=== PATIENT | male | born 1975 | race Caucasian/White ===

== ENCOUNTER 2017-10-28 12:32 | Inpatient (IN) | payer SELFPAY ==
[~2017-10-28] VITALS: Ht 160 cm; Wt 84.0 kg
[2017-10-28 12:37] VITALS: BP 133/81; PULSE 69; RESP 20; TEMP 98.7; O2SAT 98
--- NOTE | 2017-10-28 12:43 | PD ---
HPI Chief Complaint: Musculoskeletal Complaint Time Seen by Provider: 12:43 Travel History International Travel<30 days: No Contact w/Intl Traveler<30days: No Traveled to known affect area: No History of Present Illness HPI 41-year-old male came to the emergency room with history of left ankle injury today [place] the [place] and [place] a fish. He was brought in by his family. Patient speaks very limited Romansh and mostly Danish. However the Romansh was sufficient enough to let pain know about this history. He is having trouble bearing weight on that leg. No open wounds. He denies injuring any other part of the leg or his head. Vital signs are stable. This happened just prior to coming to the emergency room. He still covered in mud and sand. [facility], [facility] Past Medical History Narrative Medical List of his past medical, surgical, social and family history is reviewed from the nursing note. ?: Not Allergies-Medications (Allergen,Severity, Reaction): Coded Allergies: No Known Allergies (Unverified , 10/28/17) Comments No known drug allergies. Narrative Medication Awaiting for the nurse to do the med reconciliation Review of Systems Except as stated in HPI: all other systems reviewed are Neg Musculoskeletal: Positive: Pain Physical Exam Narrative GENERAL: Awake, alert, moderate distress SKIN: Focused skin assessment warm/dry. Dirt and sand on the legs HEAD: Atraumatic. Normocephalic. EYES: Pupils equal and round. No scleral icterus. No injection or drainage. ENT: No nasal bleeding or discharge. Mucous membranes pink and moist. NECK: Trachea midline. No JVD. CARDIOVASCULAR: Regular rate and rhythm. No murmur appreciated. RESPIRATORY: No accessory muscle use. Clear to auscultation. Breath sounds equal bilaterally. GASTROINTESTINAL: Abdomen soft, non-tender, nondistended. Hepatic and splenic margins not palpable. MUSCULOSKELETAL: No obvious deformities. No clubbing. No cyanosis. No edema. Decreased range of motion at the left ankle joint due to the pain NEUROLOGICAL: Awake and alert. No obvious cranial nerve deficits. Motor grossly within normal limits. Normal speech. PSYCHIATRIC: Appropriate mood and affect; insight and judgment normal. Data Data Last Documented VS Vital Signs Date Time Temp Pulse Resp B/P (MAP) Pulse Ox O2 Delivery O2 Flow Rate FiO2 10/28/17 14:21 18 10/28/17 13:48 68 143/78 (99) 98 Room Air 10/28/17 12:37 98.7 Orders Orders Ankle, Limited (Ap&Lat) (10/28/17 ) Foot, Complete ([id number]) (10/28/17 ) Acetamin-Hydrocod 325-5 Mg ([employer] 5-325 (10/28/17 13:00) Ketorolac Inj (Toradol Inj) (10/28/17 13:00) Support Splint (10/28/17 14:32) Complete Blood Count With Diff (10/28/17 14:32) Basic Metabolic Panel (Bmp) (10/28/17 14:32) ^ Saline Lock (10/28/17 14:32) Morphine Inj (Morphine Inj) (10/28/17 14:45) Admit To Inpatient (10/28/17 ) Vital Signs (Adult) Q4H (10/28/17 14:46) Activity Oob With Assistance (10/28/17 14:46) Sodium Chlor 0.9% 1000 Ml Inj (Ns 1000 M (10/28/17 14:46) Sodium Chloride 0.9% Flush (Ns Flush) (10/28/17 15:00) Sodium Chloride 0.9% Flush (Ns Flush) (10/28/17 21:00) Acetaminophen (Tylenol) (10/28/17 15:00) Resp Oxygen Jovanni C Titrat 1-4 L (10/28/17 ) Naloxone Inj (Narcan Inj) (10/28/17 15:00) Magnesium Hydroxide Liq (Milk Of Magnesi (10/28/17 15:00) Sennosides (Senokot) (10/28/17 15:00) Bisacodyl Supp (Dulcolax Supp) (10/28/17 15:00) Lactulose Liq (Lactulose Liq) (10/28/17 15:00) Inpatient Certification (10/28/17 ) Consult Orthopedic (10/28/17 ) Acetamin-Hydrocod 325-10 Mg ([employer] 10-32 (10/28/17 15:00) Hgb & Hct (10/29/17 06:00) Diet Npo Except Meds (10/28/17 Dinner) Hydromorphone Pf Inj (Dilaudid Pf Inj) (10/28/17 15:00) MDM Medical Decision Making Medical Screen Exam Complete: Yes Emergency Medical Condition: Yes Medical Record Reviewed: Yes Differential Diagnosis Ankle fracture, ankle dislocation, foot fracture, sprain Narrative Course 1:58 PM awaiting for the x-ray to be done and resulted. Patient was medicated for pain. 2:34 PM x-ray suggestive of comminuted distal tib-fib fracture. I have ordered for a Betancourt splint. Patient would require surgery looking at the severity of the fracture. I put a call out for orthopedist. I put a call out for the hospitalist for admission and possible transfer to the main hospital. Procedures EKG Prior to Arrival: No Physician Communication Physician Communication Dr. Fontana Diagnosis Primary Impression: Fracture of distal end of tibia with fibula Qualified Codes: S82.302A - Unspecified fracture of lower end of left tibia, initial encounter for closed fracture; S82.832A - Other fracture of upper and lower end of left fibula, initial encounter for closed fracture Admitting Information Admitting Physician Requests: Admit Sanjana Paul MD Oct 28, 2017 12:43
[2017-10-28] MEDS ORDERED: ACETAMINOPHEN/HYDROcodone 325 MG/5 MG TAB PO ONE (13:00)
[2017-10-28] MEDS ORDERED: KETOROLAC TROMETHAMINE 60 MG/2 ML (IM) VIAL IM ONE (13:00)
[2017-10-28 13:48] VITALS: BP 143/78; PULSE 68; RESP 16; O2SAT 98
--- NOTE | 2017-10-28 14:21 | RADRPT ---
EXAM DATE: 10/28/2017 2:15 PM EDT AGE/SEX: 41 years / Male INDICATIONS: Left ankle pain post fall CLINICAL DATA: This is the patient's initial encounter. Patient reports that signs and symptoms have been present for 1 day and indicates a pain score of 10/10. MEDICAL/SURGICAL HISTORY: None. None. COMPARISON: No prior exams available for comparison. FINDINGS: Comminuted fracture through the distal fibular diaphysis. Comminuted fracture through the distal tibi al metadiaphysis with intra-articular extension and disruption of the ankle mortise. There appear to be avulsed bony fragments associated with the comminuted fractures CONCLUSION: 1. Comminuted distal tibial metadiaphyseal fracture with intra-articular extension and disruption of the ankle mortise. 2. Comminuted and slightly displaced fracture through the distal fibular diaphysis Electronically signed by: Alonso Regan MD 10/28/2017 2:20 PM EDT
--- NOTE | 2017-10-28 14:27 | RADRPT ---
EXAM DATE: 10/28/2017 2:14 PM EDT AGE/SEX: 41 years / Male INDICATIONS: Left foot pain post fall CLINICAL DATA: This is the patient's initial encounter. Patient reports that signs and symptoms have been present for 1 day and indicates a pain score of 10/10. MEDICAL/SURGICAL HISTORY: None. None. COMPARISON: No prior exams available for comparison. 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 There m ay also be an accessory ossification adjacent to the navicular. Otherwise, bony structures are intact with no acute fracture. There is bony fusion of the middle and distal phalanges of the fifth ray wit h possible old fracture deformity of the same ossicles CONCLUSION: 1. 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 2. Possible old fracture deformity of the distal phalanx of the fifth digit. No acute osseous injury of the foot, however. 3. Extensive fracture injury of the distal tibia and fibula. Please see the report on the plain film examination of the ankle for further details. Electronically signed by: Alonso Regan MD 10/28/2017 2:25 PM EDT
[2017-10-28] MEDS ORDERED: MORPHINE SULFATE 2 MG/ML SYRINGE IV PUSH ONE (14:45)
[2017-10-28] MEDS ORDERED: SODIUM CHLOR 0.9% 1000 ML INJ 1,000 ML IV SCH (14:46)
[2017-10-28] MEDS ORDERED: LACTULOSE SYRUP 20 GM/30 ML CUP PO PRN (15:00)
[2017-10-28] MEDS ORDERED: SENNOSIDES 8.6 MG TAB PO PRN (15:00)
[2017-10-28] MEDS ORDERED: NALOXONE HCL 0.4 MG/ML AMP IV PUSH PRN (15:00)
[2017-10-28] MEDS ORDERED: BISACODYL 10 MG SUPP RECTAL PRN (15:00)
[2017-10-28] MEDS ORDERED: ACETAMINOPHEN/HYDROcodone 325 MG/10 MG TAB PO PRN (15:00)
[2017-10-28] MEDS ORDERED: MAGNESIUM HYDROXIDE SUSP 30 ML CUP PO PRN (15:00)
[2017-10-28] MEDS ORDERED: SODIUM CHLORIDE 0.9% FLUSH 10 ML FLUSH IV FLUSH PRN (15:00)
[2017-10-28] MEDS ORDERED: ACETAMINOPHEN 325 MG TAB PO PRN (15:00)
[2017-10-28] MEDS ORDERED: HYDROmorphone HCL PF 2 MG/ML VIAL IV PUSH PRN (15:00)
[2017-10-28 15:07] VITALS: BP 138/78; PULSE 68; RESP 16; O2SAT 98
[2017-10-28 15:07] LABS: AUTOMATED NEUTROPHIL # 10.6 TH/MM3 (1.8-7.7); BASOPHIL % 0.2 % (0.0-2.0); EOSINOPHIL % 0.1 % (0.0-4.0); HEMATOCRIT 44.3 % (39.0-51.0); LYMPH % 11.3 % (9.0-44.0); LYMPHOCYTE # 1.4 TH/MM3 (1.0-4.8); MEAN CELL VOLUME 87.3 FL (80.0-100.0); MEAN CORPUSCULAR HEMOGLOBIN 29.6 PG (27.0-34.0); MEAN CORPUSCULAR HGB CONC 33.9 % (32.0-36.0); MEAN PLATELET VOLUME 8.8 FL (7.0-11.0); MONO % 4.5 % (0.0-8.0); MONOCYTE # 0.6 TH/MM3 (0-0.9); NEUT % 83.9 % (16.0-70.0); PLATELET COUNT 248 TH/MM3 (150-450); RED BLOOD COUNT 5.08 MIL/MM3 (4.50-5.90); RED CELL DISTRIBUTION WIDTH 13.8 % (11.6-17.2); WHITE BLOOD COUNT 12.6 TH/MM3 (4.0-11.0)
[2017-10-28 15:15] LABS: BICARBONATE 23.9 MEQ/L (21.0-32.0); CALCIUM 8.9 MG/DL (8.5-10.1)
[2017-10-28 17:38] VITALS: BP 129/65; PULSE 63; RESP 16; O2SAT 98
[2017-10-28] MEDS ORDERED: SODIUM CHLORIDE 0.9% FLUSH 10 ML FLUSH IV FLUSH SCH (21:00)
== END 2017-10-28 20:11 | disposition left against medical advice (07) | DRG 563 ==
LOC: PHED 12:32 → PHEDA 14:59
PROVIDERS: ADMIT Hospitalist; ATTEND Hospitalist
DX: S89.102A Unspecified physeal fracture of lower end of left tibia, initial encounter for closed fracture (principal); S82.452A Displaced comminuted fracture of shaft of left fibula, initial encounter for closed fracture; Y92.832 Beach as the place of occurrence of the external cause; Y93.89 Activity, other specified
CPT/HCPCS: 73600; 73630; 80048; 85025; J1885; J2270; J7030